=== PATIENT | male | born 1970 | race American Indian/Alaskan Native ===

== ENCOUNTER 2023-11-20 04:16 | Day surgery (SDC) | payer BC, OTHER ==
[2023-11-12 13:05] VITALS: BMI 28.4
[2023-11-20 10:53] VITALS: TEMP 98
[2023-11-20 11:15] VITALS: BP 108/63; PULSE 81; RESP 23
== END 2023-11-20 11:23 | disposition home or self-care (01) ==
LOC: JASU-ENDO 04:16
PROVIDERS: ATTEND Internal Medicine Gastroenterology
PROC: 0DJD8ZZ Inspection of Lower Intestinal Tract, Via Natural or Artificial Opening Endoscopic (ICD-10-PCS; principal; 2023-11-20 10:30)
DX: Z12.11 Encounter for screening for malignant neoplasm of colon (principal); K57.30 Diverticulosis of large intestine without perforation or abscess without bleeding; K64.8 Other hemorrhoids